=== PATIENT | male | born 1965 | race African-American/Black ===

== ENCOUNTER 2018-01-20 21:48 | Emergency (ER) | payer MEDICARE, MEDICAID ==
[~2018-01-20] VITALS: Ht 185.4 cm; Wt 89.5 kg
[2018-01-21 03:12] LABS: BASOPHILS % 0.7 % (0.0-2.0); HEMATOCRIT. 44.4 % (42.0-52.0); HEMOGLOBIN. 14.8 g/dL (14.0-18.0); LYMPHOCYTES % 13.5 % (20.0-50.0); MEAN CORPUSCULAR HEMOGLOBIN 27.9 pg (28.0-32.0); MEAN CORPUSCULAR VOLUME 83.5 fL (80.0-94.0); MEAN PLATELET VOLUME 8.5 fl (7.4-10.4); MONOCYTES % 4.3 % (2.0-8.0); NEUTROPHILS % 80.5 % (40.0-76.0); PLATELET 197 x1000/uL (130-400); RED BLOOD CELL COUNT 5.32 mill/uL (4.7-6.1); RED CELL DISTRIBUTION WIDTH 15.2 % (11.6-14.6)
[2018-01-21 03:19] LABS: CHLORIDE 106 mEq/L (98-107)
[2018-01-21 03:21] LABS: INR 1.1; PROTHROMBIN TIME 11.4 sec (9.4-11.6)
[2018-01-21 03:23] LABS: ETHANOL BLOOD < 10 mg/dL
[2018-01-21] MEDS ORDERED: ONDANSETRON HCL 4MG/2ML VIAL IV SCH (04:30)
[2018-01-21] MEDS ORDERED: KETOROLAC 30MG/ML VIAL IV SCH (04:31)
[2018-01-21 05:50] VITALS: BP 133/76
== END 2018-01-21 05:53 | disposition home or self-care (01) ==
LOC: ER 22:03 → CANBEDREQ 01-21 06:43
DX: K56.609 Unspecified intestinal obstruction, unspecified as to partial versus complete obstruction (principal); K80.70 Calculus of gallbladder and bile duct without cholecystitis without obstruction; Z90.5 Acquired absence of kidney; Z98.890 Other specified postprocedural states
CPT/HCPCS: 36415; 71045; 74176; 80053; 83690; 84484; 85025; 85610; 93005; 96374; 96375; 99285; G0482; J1885; J2405